=== PATIENT | female | born 1980 | race Caucasian/White ===

== ENCOUNTER 2016-11-02 08:20 | Emergency (ER) | payer SELFPAY ==
[2016-11-02 08:31] VITALS: BP 133/81
--- NOTE | 2016-11-02 09:27 | RADIOLOGY REPORT (SQ) ---
EXAM DESCRIPTION: CHEST PA/LAT COMPLETED DATE/TIME: 11/02/2016 9:19 am REASON FOR STUDY: SOB, right rib pain COMPARISON: None. EXAM PARAMETERS: NUMBER OF VIEWS: two views TECHNIQUE: Digital Frontal and Lateral radiographic views of the chest acquired. RADIATION DOSE: NA LIMITATIONS: none FINDINGS: LUNGS AND PLEURA: No opacities, masses or pneumothorax. No pleural effusion. MEDIASTINUM AND HILAR STRUCTURES: No masses or contour abnormalities. HEART AND VASCULAR STRUCTURES: Heart normal size. No evidence for failure. BONES: No acute findings. HARDWARE: None in the chest. OTHER: No other significant finding. IMPRESSION: NO SIGNIFICANT RADIOGRAPHIC FINDING IN THE CHEST. TECHNICAL DOCUMENTATION: JOB ID: [id number] [employer]- All Rights Reserved
[2016-11-02 09:44] LABS: APPEARANCE,URINE SLIGHTLY-CLOUDY; BILIRUBIN,URINE NEGATIVE (NEGATIVE); GLUCOSE, URINE NEGATIVE (NEGATIVE); KETONES,URINE NEGATIVE (NEGATIVE); LEUKOCYTE ESTERASE,URINE NEGATIVE (NEGATIVE); NITRITE,URINE NEGATIVE (NEGATIVE); PROTEIN,URINE NEGATIVE (NEGATIVE); UROBILINOGEN,URINE NEGATIVE mg/dL (<2.0)
--- NOTE | 2016-11-02 09:57 | ER Document Report ---
ED General Pain - General Chief Complaint: Rib Pain Stated Complaint: FLANK PAIN Time Seen by Provider: 11/02/16 08:55 Notes: The patient is a 35-year-old female, current smoker, presents after she was coughing this morning and then felt sudden onset of right lateral chest wall pain. She is concerned that she has a rib fracture. She is having pain with deep breaths and when she presses on the area. She denies shortness of breath, leg swelling, nausea, vomiting, urinary symptoms, fevers, sputum, numbness or tingling. TRAVEL OUTSIDE OF THE [place] IN LAST 30 DAYS: No - Related Data Allergies/Adverse Reactions: No Known Allergies Allergy (Verified 11/02/16 08:24) Home Medications: Current Home Medications Alprazolam [Xanax 0.5 mg Tablet] 0.5 mg PO BID 11/02/16 [History] Ketorolac Tromethamine [Toradol 10 mg Tablet] 50 mg PO BID 11/02/16 [History] Ranitidine HCl [Zantac 150 mg Tablet] 300 mg PO BID 11/02/16 [History] Past Medical History - General Information source: Patient - Social History Smoking Status: Current Every Day Smoker Frequency of alcohol use: None Drug Abuse: None Family History: Reviewed & Not Pertinent Patient has suicidal ideation: No Patient has homicidal ideation: No Renal/ Medical History: Denies: Hx Peritoneal Dialysis Past Surgical History: Reports: Hx Tubal Ligation Review of Systems - Review of Systems Notes: REVIEW OF SYSTEMS: CONSTITUTIONAL: -fevers, -chills EENT: -eye pain, -difficulty swallowing, -nasal congestion CARDIOVASCULAR: +right chest wall pain, -syncope. RESPIRATORY: -cough, -SOB GASTROINTESTINAL: -abdominal pain, - nausea, -vomiting, -diarrhea GENITOURINARY: -dysuria, -hematuria MUSCULOSKELETAL: -back pain, -neck pain SKIN: -rash or skin lesions. HEMATOLOGIC: -easy bruising or bleeding. LYMPHATIC: -swollen, enlarged glands. NEUROLOGICAL: -altered mental status or loss of consciousness, -headache, - neurologic symptoms PSYCHIATRIC: -anxiety, -depression. ALL OTHER SYSTEMS REVIEWED AND NEGATIVE. Physical Exam - Vital signs Vitals: Temp Pulse Resp BP Pulse Ox 98.4 F 110 H 20 133/81 H 97 11/02/16 08:25 11/02/16 08:25 11/02/16 08:25 11/02/16 08:25 11/02/16 08:25 - Notes Notes: PHYSICAL EXAMINATION: GENERAL: Well-appearing, well-nourished and in no acute distress. HEAD: Atraumatic, normocephalic. EYES: Pupils equal round and reactive to light, extraocular movements intact, sclera anicteric, conjunctiva are normal. ENT: nares patent, oropharynx clear without exudates. Moist mucous membranes. NECK: Normal range of motion, supple without lymphadenopathy LUNGS: Breath sounds clear to auscultation bilaterally and equal. No wheezes rales or rhonchi. CHEST WALL: Tenderness over right posterior upper and lateral chest wall HEART: Tachycardia. ABDOMEN: Soft, nontender, normoactive bowel sounds. No guarding, no rebound. No masses appreciated. EXTREMITIES: Normal range of motion, no pitting or edema. No cyanosis. NEUROLOGICAL: Cranial nerves grossly intact. Normal speech, normal gait. Normal sensory and motor exams. PSYCH: Normal mood, normal affect. SKIN: Warm, Dry, normal turgor, no rashes or lesions noted. Course - Re-evaluation Re-evalutation: Chest x-ray does not show any evidence of pneumothorax or rib fractures. Suspect strained chest wall muscles from excessive coughing. No pneumonia on chest x-ray. Instructed patient about smoking cessation to help with her symptoms and pain control with anti-inflammatories and Lidoderm patches. Her tachycardia improved and this is most likely related to her pain and less likely to be a PE. She will follow-up with her primary care physician. Given strict return precautions and she understands. - Vital Signs Vital signs: Temp Pulse Resp BP Pulse Ox 98.4 F 110 H 20 133/81 H 97 11/02/16 08:25 11/02/16 08:25 11/02/16 08:25 11/02/16 08:25 11/02/16 08:25 - Diagnostic Test Radiology reviewed: Image reviewed, Reports reviewed Radiology results interpreted by me: CXR: NAD Discharge - Discharge Clinical Impression: Chest wall pain Condition: Stable Disposition: HOME, SELF-CARE Additional Instructions: CHEST PAIN OF UNCLEAR CAUSE: The exact cause of your chest pain isn't clear. Fortunately, there is no evidence of a dangerous medical condition. Further testing may be required to find the source of the pain. Most often, we find that this pain is coming from the chest wall -- the muscles or rib joints in the chest. But chest pain can come from the lung and lung lining, the esophagus, the heart valves or heart lining, and even the stomach or gallbladder. Rest. Eat lightly until the pain is gone. We may prescribe medicine for pain and inflammation. You should call the physician immediately if the pain radiates to the shoulder, jaw or arms; if you start to run a fever or develop a cough; or if you develop shortness of breath, or other new or alarming symptoms. NORMAL EXAM AND WORKUP: At this time, your examination and workup show no significant abnormality. No significant abnormal physical findings were noted. All laboratory, EKG, and imaging (x-ray, CT scans, ultrasound) studies that were ordered show no significant abnormality. Although your examination and all studies that were ordered showed no significant abnormal finding, there are no examinations and no studies that are 100% accurate. There is always the possibility that some abnormality could exist and not be detected with physical examination or within the limits and capabilities of laboratory and other studies. You should return or follow up as you were instructed on your visit today for further evaluation if your symptoms do not resolve. CHEST WALL PAIN: Your chest pain may be coming from the chest wall. This is often caused by straining the muscles or joints in the chest during physical activity, direct trauma, coughing, or vigorous vomiting. Persons with arthritis are especially prone to this type of pain, due to inflammation of the cartilage joints near the breast bone. Occasionally, no cause can be found. Rest from strenuous physical activity. This kind of chest pain is usually made worse by movement of the chest. Depending on the symptoms, we may prescribe medicine for pain, muscle relaxation, and antiinflammatory effects. If the pain is new, and seems to be due to muscle strain, cold packs can help. Otherwise, apply gentle warmth to the painful area for 15 minutes every hour or two. You should call contact the doctor immediately if things change. Further evaluation is needed if you develop a fever or cough, if the nature of the pain changes, or if you become short of breath. FOLLOW-UP CARE: If you have been referred to a physician for follow-up care, call the physician s office for an appointment as you were instructed or within the next two days. If you experience worsening or a significant change in your symptoms, notify the physician immediately or return to the Emergency Department at any time for re-evaluation. Prescriptions: Lidocaine [Lidoderm 5% (700 mg) Transdermal Patch] 1 patch TP DAILY #10 adh..patch Naproxen [Naprosyn 250 mg Tablet] 500 mg PO Q12H PRN #20 tablet PRN Reason: Forms: Smoking Cessation Education, Return to Work
[2016-11-02] MEDS ORDERED: NAPROXEN 250 MG TABLET PO ONE (09:59)
[2016-11-02] MEDS ORDERED: LIDOCAINE 5% (700 MG) TRANSDERMAL ADH..PATCH TP ONE (09:59)
== END 2016-11-02 10:35 | disposition home or self-care (01) ==
LOC: ER 08:20
DX: R07.81 Pleurodynia (principal); R10.9 Unspecified abdominal pain; R06.02 Shortness of breath; Z79.899 Other long term (current) drug therapy; F17.200 Nicotine dependence, unspecified, uncomplicated
CPT/HCPCS: 71020; 81001; 81025; 99283